=== PATIENT | female | born 1945 | race Caucasian/White ===

== ENCOUNTER 2020-09-19 05:36 | Day surgery (SDC) | payer OTHER ==
[~2020-09-19] VITALS: Ht 149.9 cm; Wt 50.9 kg
[2020-09-19] MEDS ORDERED: ALBUTEROL SULFATE 2.5 MG/0.5 ML NEB SOLUTION NEB ONE (05:37)
[2020-09-19] MEDS ORDERED: BENZOCAINE 20% 50 MCG/SPRAY 57 GM TP ONE (05:37)
[2020-09-19] MEDS ORDERED: LIDOCAINE 4% 50 ML SOLUTION TP ONE (05:37)
[2020-09-19] MEDS ORDERED: LIDOCAINE 2% 30 ML JELLY TP ONE (05:37)
[2020-09-19] MEDS ORDERED: SODIUM CHLORIDE 0.9% 1,000 ML IV ONE (06:30)
[2020-09-19] MEDS ORDERED: SODIUM CHLORIDE 0.9% 1,000 ML ONE (06:51)
[2020-09-19] MEDS ORDERED: FAMO40TA7 PO (07:07)
[2020-09-19] MEDS ORDERED: ISOS30TA92 PO (07:07)
[2020-09-19] MEDS ORDERED: AMLO5TAB66 PO (07:07)
[2020-09-19] MEDS ORDERED: MONT10TA32 PO (07:07)
[2020-09-19] MEDS ORDERED: ALEN70TA80 PO (07:07)
[2020-09-19] MEDS ORDERED: CHOL500013 PO (07:07)
[2020-09-19] MEDS ORDERED: ATOR20TA65 PO (07:07)
[2020-09-19] MEDS ORDERED: FLUT220HFA IH (07:07)
[2020-09-19] MEDS ORDERED: ALLO300T2 PO (07:07)
[2020-09-19] MEDS ORDERED: LOSA50TA37 PO (07:07)
[2020-09-19] MEDS ORDERED: ASPI-1444 PO (07:07)
[2020-09-19] MEDS ORDERED: LOSA25TA21 PO (07:07)
[2020-09-19] MEDS ORDERED: METO25 PO (07:07)
[2020-09-19] MEDS ORDERED: HYDR500 PO (07:07)
[2020-09-19] MEDS ORDERED: FentaNYL CITRATE PF 100 MCG/2 ML VIAL ONE (07:47)
[2020-09-19] MEDS ORDERED: MIDAZOLAM HCL 5 MG/ML VIAL ONE (07:47)
[2020-09-19 08:11] LABS: COVID AG,FIA SOURCE NASOPHARYNGEAL
[2020-09-19] MEDS ORDERED: MethylPREDNISolone SOD SUCC 125 MG/2 ML VIAL IVP ONE (09:00)
[2020-09-19] MEDS ORDERED: MethylPREDNISolone SOD SUCC 125 MG/2 ML VIAL ONE (09:22)
[2020-09-19] MEDS ORDERED: OXYGEN THERAPY IH SCH (20:00)
== END 2020-09-19 10:45 | disposition home or self-care (01) ==
LOC: SURGERY 05:36
PROVIDERS: ATTEND Internal Medicine Critical Care Medicine
DX: J38.4 Edema of larynx (principal); B37.0 Candidal stomatitis; I10 Essential (primary) hypertension; E78.5 Hyperlipidemia, unspecified; I25.10 Atherosclerotic heart disease of native coronary artery without angina pectoris; Z98.890 Other specified postprocedural states; Z90.710 Acquired absence of both cervix and uterus; Z79.899 Other long term (current) drug therapy
CPT/HCPCS: 31623; 31624; 71045; 87015; 87070; 87101; 87205; 87206; 87220; 87426; 88108; 88184; 88185; 88312; C9803; J2250; J2930; J3010; J7030; J7613; Z7610